=== PATIENT | female | born 1995 | race African-American/Black ===

== ENCOUNTER 2017-07-27 11:22 | Emergency (ER) | payer OTHER | END 2017-07-27 12:11 | disposition home or self-care (01) | LOC: M ED 11:22 | DX: J06.9 Acute upper respiratory infection, unspecified (principal) | CPT/HCPCS: 87880 ==

== ENCOUNTER 2017-12-21 16:02 | Emergency (ER) | payer OTHER | END 2017-12-21 19:42 | disposition home or self-care (01) | LOC: M ED 16:02 | DX: H61.23 Impacted cerumen, bilateral (principal) | CPT/HCPCS: 69210 ==